=== PATIENT | male | born 1980 | race Two or more races ===

== ENCOUNTER 2019-11-14 17:09 | Emergency (ER) | payer SELFPAY ==
[~2019-11-14] VITALS: Ht 172.7 cm; Wt 77.1 kg
--- NOTE | 2019-11-14 17:11 | NUR ---
Patient is alert, oriented to name ,place ,time & circumstances. Patient admits to drinking alcohol frequently. Patient also said that he fell today and yesterday. Patient is refusing wound cleaning to the left side of his scalp and related treatment. [email or web address].
[2019-11-14] MEDS: TDAP DIPH,PERTUSS,TET VAC/PF 0.5 ML DISP.SYRIN IM ONE (17:17)
[2019-11-14] MEDS: LORAZEPAM 0.5 MG TABLET PO ONE (17:18)
--- NOTE | 2019-11-14 17:19 | NUR ---
Patient is refusing the vaccine & po ativan with salesperson corsets Alexandra Alejo, ER registration staff
[2019-11-14] MEDS ORDERED: BP MED (17:35)
--- NOTE | 2019-11-14 17:50 | NUR ---
Viv wolfe in [facility] - 11/14/19 at 1751 by ROSE MARIE Patient's spouse is here inside ER room 4A & is now talking to the patient and MD.
--- NOTE | 2019-11-14 18:11 | NUR ---
Patient does not wish to proceed with medical care recommended by Dr. Gallardo. Patient was given information in [place] related to possible complications, up to and including , which could occur as a result of leaving the hospital at this time. Patient verbalized understanding of risks involved due to leaving against medical advice. Patient has signed AMA form.
--- NOTE | 2019-11-14 18:18 | NUR ---
Patient given written and verbal discharge instructions in [place]. Patient verbalized understanding of instructions. Patient is ambulatory with steady gait. Patient refuses offer of assisted placement. He says he stays with his friend & does not wish to give the address. Patient was given a list of available shelters in surrounding area.
== END 2019-11-14 18:21 | disposition left against medical advice (07) ==
LOC: ER 17:12
DX: S01.01XA Laceration without foreign body of scalp, initial encounter (principal); W01.0XXA Fall on same level from slipping, tripping and stumbling without subsequent striking against object, initial encounter; Y92.89 Other specified places as the place of occurrence of the external cause; F10.129 Alcohol abuse with intoxication, unspecified; Y90.9 Presence of alcohol in blood, level not specified; Z59.0 Homelessness; R00.0 Tachycardia, unspecified; G40.909 Epilepsy, unspecified, not intractable, without status epilepticus
CPT/HCPCS: 70450; 72125; A4217; A4663